=== PATIENT | female | born 1980 | race Caucasian/White ===

== ENCOUNTER → 2020-08-17 | Outpatient (CLI) | payer OTHER | END | disposition home or self-care (01) | LOC: STAR 15:58 | PROVIDERS: ATTEND Obstetrics & Gynecology | DX: Z01.812 Encounter for preprocedural laboratory examination (principal); Z20.828 Contact with and (suspected) exposure to other viral communicable diseases | CPT/HCPCS: 36415; 87635 ==

== ENCOUNTER 2020-08-22 10:25 | Inpatient (IN) | payer BC, OTHER ==
[~2020-08-22] VITALS: Ht 175.3 cm; Wt 65.9 kg
[2020-08-22] MEDS ORDERED: EPHEDRINE 50 MG/ML, 1ML ONE (10:52)
[2020-08-22] MEDS ORDERED: CEFAZOLIN 1,000 MG ONE (10:52)
[2020-08-22] MEDS ORDERED: ONDANSETRON 2MG/ML, 2ML ONE (10:52)
[2020-08-22] MEDS ORDERED: KETOROLAC 30 MG/1 ML ONE (10:52)
[2020-08-22] MEDS ORDERED: PHENYLEPHRINE 10 MG/ML ONE (10:52)
[2020-08-22] MEDS ORDERED: OXYTOCIN 10 UNITS/ML, 1ML ONE (10:52)
[2020-08-22] MEDS ORDERED: DEXAMETHASONE 4 MG/ML, 1ML ONE (10:52)
[2020-08-22] MEDS ORDERED: HYDROmorphone 2 MG/ML, 1ML ONE (10:53)
[2020-08-22] MEDS ORDERED: FENTANYL PF 100 MCG/2ML ONE (10:53)
[2020-08-22] MEDS ORDERED: MEPERIDINE/PF 25MG/0.5ML IVPush PRN (11:00)
[2020-08-22] MEDS ORDERED: ALBUTEROL SULFATE 2.5 MG/3 ML NPPB PRN (11:00)
[2020-08-22] MEDS ORDERED: FENTANYL PF 100 MCG/2ML IV PRN (11:00)
[2020-08-22] MEDS ORDERED: HYDROmorphone 2 MG/ML, 1ML IVPush PRN (11:00)
[2020-08-22] MEDS ORDERED: OXYcodone 5 MG/5 ML ORAL.SOL UDC PO PRN (11:00)
[2020-08-22] MEDS ORDERED: ONDANSETRON 2MG/ML, 2ML IVPush PRN (11:00)
[2020-08-22] MEDS ORDERED: EPHEDRINE 50 MG/ML, 1ML IVPush PRN (11:00)
[2020-08-22] MEDS ORDERED: LACTATED RINGERS 1,000 ML IVBOLUS ONE (11:00)
[2020-08-22] MEDS ORDERED: hydrALAzine 20 MG/ML, 1ML IV PRN (11:00)
[2020-08-22] MEDS ORDERED: HYDROcodone/APAP 7.5-325MG/15ML UDC PO PRN (11:00)
[2020-08-22] MEDS ORDERED: LABETALOL 5MG/ML, 20ML IV PRN (11:00)
[2020-08-22] MEDS ORDERED: PROMETHAZINE 25 MG/ML, 1ML IV PRN (11:00)
[2020-08-22] MEDS ORDERED: METOPROLOL 1 MG/ML, 5ML IV PRN (11:00)
[2020-08-22 11:10] VITALS: BP 112/77
[2020-08-22] MEDS ORDERED: METOCLOPRAMIDE 5 MG/ML, 2ML ONE (11:28)
[2020-08-22] MEDS ORDERED: OXYTOCIN 30U/ 0.9% NaCL 500ML 500 ML ONE (11:29)
[2020-08-22 11:46] LABS: BASOPHILS % (AUTO) 0 % (0-1); EOSINOPHILS % (AUTO) 0 % (1-7); LYMPHOCYTES % (AUTO) 20 % (22-44); MEAN CORPUSCULAR HEMOGLOBIN 30.7 pg (27.0-34.8); MEAN CORPUSCULAR HGB CONC 33.7 g/dL (32.4-35.8); MEAN PLATELET VOLUME 8.7 fL (7.4-10.4); MONOCYTES % (AUTO) 7 % (2-9); NEUTROPHILS % (AUTO) 72 % (42-75); PLATELET COUNT 219 x10^3/uL (130-400); RED BLOOD COUNT 3.72 x10^6/uL (3.82-5.3); RED CELL DISTRIBUTION WIDTH 14.4 % (9.6-15.2)
[2020-08-22 11:49] LABS: MD NO
[2020-08-22] MEDS ORDERED: NEWBORN KIT ONE (11:51)
[2020-08-22] MEDS ORDERED: SODIUM CITRATE/CITRIC ACID 30 ML UDC PO ONE (12:00)
[2020-08-22] MEDS ORDERED: METOCLOPRAMIDE 5 MG/ML, 2ML IV ONE (12:00)
[2020-08-22] MEDS ORDERED: MISOPROSTOL 200 MCG TABLET PR PRN (13:30)
[2020-08-22] MEDS ORDERED: METHYLERGONOVINE 0.2 MG/ML IM PRN (13:30)
[2020-08-22] MEDS ORDERED: CARBOPROST TROMETHAMINE 250 MCG/ML, 1ML IM PRN (13:30)
[2020-08-22] MEDS ORDERED: morphine SULFATE 10 MG/ML, 1ML IM PRN (13:30)
[2020-08-22] MEDS ORDERED: ONDANSETRON 2MG/ML, 2ML IV PRN (13:30)
[2020-08-22] MEDS: LACTATED RINGERS 1,000 ML IV SCH ×4 (13:30→23:30)
[2020-08-22] MEDS: KETOROLAC 30 MG/1 ML IV SCH ×2 (13:30→19:29)
[2020-08-22] MEDS ORDERED: morphine SULFATE 10 MG/ML, 1ML IVPush PRN (13:30)
[2020-08-22] MEDS ORDERED: OXYcodone/APAP 5/325MG TABLET PO PRN (13:30)
[2020-08-22] MEDS: OXYTOCIN 30U/ 0.9% NaCL 500ML 500 ML IV SCH ×2 (13:51→23:30)
[2020-08-22 15:20] VITALS: BP 110/70
[2020-08-22] MEDS: OXYcodone/APAP 5/325MG TABLET PO PRN (16:55)
[2020-08-22] MEDS: SIMETHICONE 80 MG CHEW TAB PO PRN (16:55)
[2020-08-22] MEDS: DOCUSATE 100 MG CAPSULE PO PRN (19:29)
[2020-08-22 19:45] VITALS: BP 107/67
[2020-08-22 23:28] VITALS: BP 103/61
[2020-08-23] MEDS: SIMETHICONE 80 MG CHEW TAB PO PRN ×2 (01:32→13:43)
[2020-08-23] MEDS: KETOROLAC 30 MG/1 ML IV SCH ×4 (01:32→19:52)
[2020-08-23] MEDS: OXYcodone/APAP 5/325MG TABLET PO PRN ×3 (01:36→20:03)
[2020-08-23 04:30] VITALS: BP 100/66
[2020-08-23] MEDS: LACTATED RINGERS 1,000 ML IV SCH ×5 (05:30→21:30)
[2020-08-23] MEDS: DOCUSATE 100 MG CAPSULE PO PRN (07:31)
[2020-08-23 07:35] VITALS: BP 106/70
[2020-08-23] MEDS: PRENATAL VIT/IRON/FA 1 EACH TABLET PO SCH (09:00)
[2020-08-23] MEDS: OXYTOCIN 30U/ 0.9% NaCL 500ML 500 ML IV SCH ×2 (09:30→19:30)
[2020-08-23 12:00] VITALS: BP 105/72
[2020-08-23] MEDS: IBUPROFEN 800 MG TABLET PO PRN (20:03)
[2020-08-23 21:00] VITALS: BP 116/77
[2020-08-24] MEDS: OXYcodone/APAP 5/325MG TABLET PO PRN ×3 (02:24→15:09)
[2020-08-24 04:14] LABS: BASOPHILS % (AUTO) 0 % (0-1); EOSINOPHILS % (AUTO) 2 % (1-7); LYMPHOCYTES % (AUTO) 21 % (22-44); MEAN CORPUSCULAR HEMOGLOBIN 30.8 pg (27.0-34.8); MEAN CORPUSCULAR HGB CONC 33.5 g/dL (32.4-35.8); MEAN PLATELET VOLUME 7.7 fL (7.4-10.4); MONOCYTES % (AUTO) 8 % (2-9); NEUTROPHILS % (AUTO) 70 % (42-75); PLATELET COUNT 175 x10^3/uL (130-400); RED BLOOD COUNT 2.85 x10^6/uL (3.82-5.3); RED CELL DISTRIBUTION WIDTH 14.4 % (9.6-15.2)
[2020-08-24 04:15] LABS: MD NO
[2020-08-24 08:20] VITALS: BP 117/76
[2020-08-24] MEDS: SIMETHICONE 80 MG CHEW TAB PO PRN (08:39)
[2020-08-24] MEDS: DOCUSATE 100 MG CAPSULE PO PRN (08:39)
[2020-08-24] MEDS: IBUPROFEN 800 MG TABLET PO PRN (08:39)
[2020-08-24] MEDS: PRENATAL VIT/IRON/FA 1 EACH TABLET PO SCH (08:39)
== END 2020-08-24 16:06 | disposition home or self-care (01) | DRG 788 ==
LOC: LDIP 10:25 → 2NW 15:15
PROVIDERS: ADMIT Obstetrics & Gynecology; ATTEND Obstetrics & Gynecology
PROC: 10D00Z1 Extraction of Products of Conception, Low, Open Approach (ICD-10-PCS; principal; 2020-08-22)
DX: O34.13 Maternal care for benign tumor of corpus uteri, third trimester (principal); Z37.0 Single live birth; Z3A.38 38 weeks gestation of pregnancy; O99.344 Other mental disorders complicating childbirth; D25.9 Leiomyoma of uterus, unspecified; Z91.040 Latex allergy status; F32.9 Major depressive disorder, single episode, unspecified
CPT/HCPCS: 36415; 85025; 86592; 86850; 86900; 86923; G0378; J0690; J1100; J1170; J1885; J2405; J3010; J2370; J2590; J2765; J7120